=== PATIENT | female | born 1995 | race African-American/Black ===

== ENCOUNTER 2018-02-01 17:48 | Emergency (ER) | payer OTHER ==
[~2018-02-01] VITALS: Ht 172.7 cm; Wt 66.5 kg
[2018-02-01 17:58] VITALS: TEMP 36.9; Ht 172.7 cm; Wt 66.5 kg
[2018-02-01 18:00] VITALS: O2SAT 97
[2018-02-01] MEDS ORDERED: RANITIDINE HCL 50 MG/100 ML D5W IV STA (18:03)
[2018-02-01] MEDS ORDERED: METHYLPREDNISOLONE 125 MG VIAL IV STA (18:03)
[2018-02-01] MEDS ORDERED: ONDANSETRON INJ 2 MG/ML 2 ML VIAL IV STA ×2 (18:03→19:57)
[2018-02-01] MEDS ORDERED: SODIUM CHLORIDE 0.9% 1000ML 1,000 ML IV STA ×2 (18:03→19:25)
[2018-02-01] MEDS ORDERED: DiphenhydrAMINE HCL 50 MG/ML VIAL IV STA ×2 (18:03→19:25)
[2018-02-01] MEDS ORDERED: CETI10TA10 PO (18:17)
[2018-02-01] MEDS ORDERED: FLUT0.15 NAE (18:17)
[2018-02-01] MEDS ORDERED: EPINEPHRINE ADULT AUTO-INJECT 0.3 MG SYR IM STA (20:11)
--- NOTE | 2018-02-01 20:23 | EMERGENCY ROOM VISIT NOTE ---
History Report prepared by [employer]: Alok Tyler Under the Supervision of: Dr. Adam Gomez M.D. First contact with patient: 17:54 Chief Complaint: ALLERGIC REACTION Stated Complaint: PEANUT ALLERGY, ATE NUTRITION BAR WITH PEANUT IN History of Present Illness The patient is a 22 year old female who presents to the Emergency Room with complaints of a worsening rash across her face and upper extremities that began shortly after eating snack bar at 1705, 53 minutes ago. The patient states that she ate a STEPHON Bar at 1705 that contained Cashews. She was unaware of the contents of the bar and is allergic to cashews. She felt the reaction on-setting quickly and used an EpiPen at 1715. Her symptoms improved for a while, but the friend at bedside notes that the rash on her face is now worsening again. She does currently complain of itching all over. She has had reactions before, but has never been intubated. Her last LNMP was 3 months ago, but is not sexually active. Source of History: patient, friend Onset: 53 minutes ago Position: head (face), arm Quality: other (rash, itching) Timing: worsening (resoved, now returning) Modifying Factors (Relieving): other (EpiPen improved for a short time. ) Review of Systems See HPI for pertinent positives and negatives. A total of ten systems were reviewed and were otherwise negative. Past Medical & Surgical No significant histories discussed. Family History Patient reports no known family medical history. Social History Marital Status: single Housing Status: lives with roommate Occupation Status: student Current/Historical Medications Scheduled Cetirizine Hcl (Zyrtec), 10 MG PO DAILY Fluticasone Propionate (Nasal) (Flonase Allergy Relief), 2 SPRAYS OBEY DAILY Allergies Coded Allergies: No Known Allergies (Unverified , 02/01/18) Physical Exam Vital Signs Date Time Temp Pulse Resp B/P (MAP) Pulse Ox O2 Delivery O2 Flow Rate FiO2 02/01/18 20:06 75 18 111/75 95 Room Air 02/01/18 19:30 103 20 92/61 91 Room Air 02/01/18 19:00 91 18 132/81 96 Room Air 02/01/18 18:21 99 02/01/18 18:21 112 20 122/75 97 Room Air 02/01/18 18:00 97 Room Air 02/01/18 17:58 36.9 104 20 145/82 97 Room Air Physical Exam GENERAL: Awake, alert, well-appearing, NAD HENT: Normocephalic, atraumatic. EYES: Normal conjunctiva. Sclera non-icteric. NECK: Supple. No nuchal rigidity. FROM. RESPIRATORY: CTAB, no rhonchi, wheezing, crackles. She is no stridulous. CARDIAC: Tachycardic and regular, no MRG ABDOMEN: Soft, NTND, BS+ MSK: No chest wall TTP, no LE edema NEURO: GCS 15, CN 2-12 intact, moves all 4s on command SKIN: There is an urticarial rash present over the face, upper extremities, chest, and abdomen. Medical Decision & Procedures Laboratory Results Test 02/01/18 18:15 Urine Test NEG (NEG) Laboratory results reviewed by me Medications Administered Medications (Trade) Dose Ordered Sig/Ritika Route Start Time Stop Time Status Last Admin Dose Admin Ranitidine HCl (zANTac IV) 50 mg NOW STAT IV 02/01/18 18:03 02/01/18 18:04 DC 02/01/18 18:24 50 MG Ondansetron HCl (Zofran Inj) 4 mg NOW STAT IV 02/01/18 18:03 02/01/18 18:04 DC 02/01/18 18:17 4 MG Sodium Chloride 1,000 ml @ 999 mls/hr Q1H1M STAT IV 02/01/18 18:03 02/01/18 19:03 DC 02/01/18 18:18 999 MLS/HR Methylprednisolone Sodium Succinate (Solu-Medrol IV) 125 mg NOW STAT IV 02/01/18 18:03 02/01/18 18:04 DC 02/01/18 18:17 125 MG Sodium Chloride 1,000 ml @ 999 mls/hr Q1H1M STAT IV 02/01/18 19:25 02/01/18 20:25 02/01/18 19:34 999 MLS/HR Diphenhydramine HCl (Benadryl Inj) 50 mg NOW STAT IV 02/01/18 19:25 02/01/18 19:26 DC 02/01/18 19:34 50 MG Ondansetron HCl (Zofran Inj) 4 mg NOW STAT IV 02/01/18 19:57 02/01/18 19:58 DC 02/01/18 20:05 4 MG ED Course 1757: The patient was evaluated in room A12A. A complete history and physical exam was performed. 1802: Ordered Benadryl 50 mg IV, Solu-Medrol 125 mg IV, Sodium Chloride 1000 mL @ 999 mL/hr IV, Zofran 4 mg IV, zANTac 50 mg IV. 1921: I checked on the patient at this time. Her symptoms are worsening, but here is still no stridor. 1924: Ordered Benadryl 50 mg IV, Sodium Chloride 1000 mL @ 999 mL/hr IV. 1942: The pt's nurse has informed me that the patient is getting nauseous at this time. 1956: Ordered Zofran 4 mg IV Medical Decision The patient is a 22 year old female who presents to the Emergency Room with complaints of a worsening rash across her face and upper extremities that began shortly after eating snack bar at 1705, 53 minutes ago. Nursing notes reviewed. Ancillary studies and prior records reviewed. Differential diagnosis: Etiologies such as allergic reaction, anaphylaxis, urticaria, Park-Stuart syndrome, toxic epidermal necrolysis, erythema multiforme, cellulitis, as well as others were entertained. Patient was seen and evaluated at the bedside. Patient noticed that she was having some worsening rash as well as feeling those she was having some tightening in her chest and throat. Patient had eaten a snack bar which initially did not display any sort of knots but upon further review they realize that this likely did contain and that that she may be allergic to. The patient is allergic to cashews. Patient had self-administered subcu IM epinephrine and the patient also did take some Benadryl prior to arrival. On exam the patient does have some urticaria but no noted stridor the patient does not have any wheezing on exam. Patient did receive Solu-Medrol, ranitidine, and fluids. Upon reassessment of the patient the patient was feeling much improved. Patient was told that after some further waiting we would reassess and see how she was feeling. The patient 's urticaria had resolved. Upon reassessment the patient was feeling as though she was having some tightening in her throat. The patient again was not stridulous the patient had no wheezing on exam. Posterior pharynx is clear. Patient was given an additional dose of Benadryl. Upon reassessment thereafter the patient was feeling improved. Tachycardia had resolved. 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 Patient was deemed suitable for outpatient follow-up and treatment at this time and is given strict return precautions. The team physician was at the bedside who is able to monitor the patient's well-being. Patient was given strict follow-up, discharge, and return precautions. All questions were answered. Patient was deemed suitable for outpatient follow-up at this time. Patient agreed with the plan of care and was safely discharged home. Medication Reconcilliation Current Medication List: was personally reviewed by me Blood Pressure Screening Patient's blood pressure: Normal blood pressure Impression Primary Impression: Allergic reaction Additional Impression: Urticaria Scribe Attestation The scribe's documentation has been prepared under my direction and personally reviewed by me in its entirety. I confirm that the note above accurately reflects all work, treatment, procedures, and medical decision making performed by me. Departure Information Dispostion Home / Self-Care Referrals No Doctor, Assigned (PCP) Patient Instructions ED Allergic React Food, My [employer] Additional Instructions Please return to the emergency department if you have worsening or recurrent symptoms not amenable to at-home treatment. Please call for a follow-up appointment with her primary care physician. Please take your medications as prescribed. If you have other concerns and/or complaints please feel free to also call your primary care physician's office or return the ED for further evaluation, management, and treatment. You were found to have an elevated blood pressure today (>120 sytolic or >90 diastolic). Per medicare guidelines, you need to follow up with this blood pressure screening with your Primary Care Physician (PCP). For a new PCP call [phone]. You received narcotic or benzodiazepene medication while in the emergency room today. This is an addictive medication that may cause drowziness as well as constipation. Do not drive, operate heavy machinery, or drink alcohol under the influence of this medication. You may take 600 mg Ibuprofen every 6 hours as needed for pain with food for no more than 2 consecutive days. You may take tylenol 1000 mg every 6 hours as needed for pain. You may take motrin and tylenol separately or at the same time. He may take Benadryl 50 mg every 6 hours and Pepcid 20 mg every 12 hours. Please take your steroids preferably in the morning with food. Take your medications as prescribed. You have been examined and treated today on an emergency basis only. This is not a substitute for, or an effort to provide, complete comprehensive medical care. It is impossible to recognize and treat all injuries or illnesses in a single emergency department visit. It is therefore important that you follow up closely with [facility], your PCP, and/or your specialist(s). Call as soon as possible for an appointment. Thank you for your time and consideration. I look forward to speaking with you again soon. Please don't hesitate to call us if you have any questions. Problem Qualifiers Primary Impression: Allergic reaction Encounter type: initial encounter Qualified Codes: T78.40XA - Allergy, unspecified, initial encounter
[2018-02-01 20:35] VITALS: BP 115/76; PULSE 73; O2SAT 100
== END 2018-02-01 20:35 | disposition home or self-care (01) ==
LOC: C.EDB 17:50 → C.EDA 20:35
DX: T78.40XA Allergy, unspecified, initial encounter (principal); X58.XXXA Exposure to other specified factors, initial encounter; L50.0 Allergic urticaria; Z79.899 Other long term (current) drug therapy